=== PATIENT | female | born 1935 | race Caucasian/White ===

== ENCOUNTER 2016-09-16 11:51 | Emergency (ER) | payer MEDICARE, BC ==
[2016-09-16 12:23] VITALS: BP 121/72
[2016-09-16 12:41] LABS: Hematocrit 39.5 % (37.0-47.0); Mean Corpuscular Hgb Conc 32.9 g/dl (32-36); Mean Platelet Volume 9.2 fl (6.0-9.5); Neutrophil # 10.7 K/mm3 (1.3-6.0); Neutrophil % 74.7 % (42-75.0); Platelet Count 226 K/mm3 (150-450); Red Cell Distribution Width 13.3 % (11.5-14.0); White Blood Count 14.3 K/mm3 (4.0-10.5)
[2016-09-16 12:51] LABS: Prothrombin Time (Patient) 10.3 Seconds (9.4-11.4)
[2016-09-16 12:57] LABS: INR 0.99 INR (0.90-1.10); Partial Thrombolplastin Time 28.2 Seconds (24-32)
[2016-09-16 12:58] LABS: ALT 14 U/L (19-67); AST 12 U/L (0-48); Alkaline Phosphatase * 86 U/L (50-170); BUN/Creatinine Ratio 19.4 (9.0-21.6); Bilirubin, Total 1.6 mg/dL (0.0-1.1); Blood Urea Nitrogen 19 mg/dL (3-23); Ca. Corrected For Albumin 9.9 mg/dL (8.4-10.2); Calcium * 9.4 mg/dL (7.9-10.9); Carbon Dioxide 28.6 mmol/L (24-32.6); Chloride 101 mmol/L (97-106); Glucose * 154 mg/dL (70-110); Potassium 4.6 mmol/L (3.4-4.6); Sodium 138 mmol/L (132-142); Total Protein 7.3 gm/dL (6.2-8.2); Troponin I Less than 0.017 ng/ml (0.00-0.10)
[2016-09-16] MEDS ORDERED: NORMAL SALINE 1,000 ML IV ONE (13:27)
--- NOTE | 2016-09-16 13:40 | ERNOTE ---
Back Pain ER HPI Date of Service: 09/16/16 Time Seen by Provider: 09/16/16 13:31 Source: patient Exam Limitations: no limitations Immunizations: IMMUNIZATION HX Immunizations Up to Date Yes History of Influenza Vaccine No Hx Pneumococcal Vaccination No Allergies/Adverse Reactions: Allergies No Known Allergies Allergy (Verified 09/16/16 12:24) Home Medications: HOME MEDICATIONS Cholecalciferol (Vitamin D3) [Vitamin D3] 1,000 unit PO DAILY 08/12/16 [Last Taken Unknown] Lisinopril [Prinivil] 20 mg PO DAILY 08/12/16 [Last Taken Unknown] Lovastatin [Altoprev] 20 mg PO DAILY 08/12/16 [Last Taken Unknown] Niacin 500 mg PO DAILY 08/12/16 [Last Taken Unknown] [place]-3 Fatty Acids/Fish Oil [Fish Oil 1,200 mg Softgel] 1 each PO DAILY [Last Taken Unknown] Nicotine [Nicotine Patch] 1 each TD DAILY 09/16/16 [Last Taken Unknown] Narrative: Pt. comes in with c/o cough and R post back pain that worsens with deep breathing or coughing. Pt. states that her SOB that she was admitted for last month has improved and she has been doing better since discharge from the hospital but this pain developed yesterday and is not improving. Pt. has a hx of TB, COPD, and recent pneumonia. Pt. denies any calf pain, fevers or alleviating factors. Pt. states that she is still decreasing her smoking but has not quit yet. Review of Systems - Review of Systems Constitutional: Present: no symptoms reported. Absent: recent illness, fever, chills, fatigue, malaise EYE: Present: no symptoms reported ENT: Present: no symptoms reported Respiratory: Present: cough. Absent: shortness of breath, wheezing Cardiology: Present: chest pain - R post. Absent: palpitations, syncope, edema , claudication Gastrointestinal/Abdominal: Present: no symptoms reported Genitourinary: Present: no symptoms reported Musculoskeletal: Present: back pain - R lateral upper point pain. Absent: muscle pain, neck pain, joint pain Skin: Present: no symptoms reported Neurological: Present: no symptoms reported. Absent: headache, dizziness/light- headedness, numbness, tingling Endocrine: Present: no symptoms reported All Other Systems: All systems neg except as marked - Patient's Past Medical History Patient History - Medical: No pertinent hx Patient History - Cardiac/Respiratory: Hypertension, Hyperlipidemia Patient History - Cancer: No Hx of Cancer Patient History - Surgical Procedures: Hysterectomy, T & A, Other LMP (females 10-50): Menopausal - Family History Mother Family History - Medical: , No pertinent hx Father Family History - Medical: , No pertinent hx - Social History Living Situations: home Smoking Status: Former smoker Have you smoked in the past 12 months: Yes Smoking Stop Date: 08/15/16 Alcohol Use: none Drug Use: none Physical Exam - Physical Exam General Appearance: Present: wd/wn, alert, no apparent distress Eye Exam: Normal inspection: bilateral, PERRL: bilateral, EOMI: bilateral Neck: Present: normal inspection, nontender. Absent: lymphadenopathy (R), lymphadenopathy (L) Respiratory: Present: no respiratory distress, no accessory muscle use, chest nontender, decreased breath sounds - R lower lobe Cardiovascular/Chest: Present: regular rate, rhythm, no murmur, normal peripheral pulses Gastrointestinal/Abdominal: Present: normal bowel sounds, nontender, nondistended, soft, no organomegaly Back Exam: Present: normal inspection, normal range of motion, no CVA tenderness , no vertebral tenderness Extremity Exam: Present: normal inspection, non-tender, no edema, normal range of motion Neurological Exam: Present: alert, oriented, normal mood/affect, no motor/ sensory deficits Skin Exam: Present: normal color, warm/dry. Absent: pallor, skin rash ED Progress - Date and Time Seen: Date and Time: 09/16/16 15:[address] Andrew Johansen and as pt. has significant pulmonary history we feel that pt. should be observed overnight for complications and further problems of diagnosis. Discussed with Dr Bruno and as these clots are small she feels pt. does not nbeed to be admitted and will come see pt. to determine if she will admit pt. 09/16/16 16:[address] Bruno and we will discharge pt. home with Eliquis - Vital Signs Patient's Vital Signs:: I have reviewed the patient's vital signs. Vital Signs: Vital Signs 09/16/16 12:17 Temperature 36.9 C Pulse Rate 100 Respiratory 16 Rate Blood Pressure 121/72 O2 Sat by Pulse 92 Oximetry - EKG EKG: LVH EKG read: Interp. by me EKG Comments: Sinus tach - X-Ray X-Ray #1 X-Ray: chest Interpretation: Reviewed by me X-ray Comments: no acute cardiopulmonary process - CT/Ultrasound CT/Ultrasound Narrative: CT chest IMPRESSION: RIGHT MIDDLE LOBE AND RIGHT LOWER LOBE PULMONARY EMBOLUS. FINDINGS TELEPHONED TO THE EMERGENCY ROOM PERSONNEL AT 1524 HOURS. Electronically signed by Ifeanyi Beltre M.D.. - Progress/Reassessment Chief Complaint: Back Pain Departure Clinical Impression: Pulmonary embolism Qualifiers: Pulmonary embolism type: other Chronicity: acute Acute cor pulmonale presence: without acute cor pulmonale Qualified Code(s): I26.99 - Other pulmonary embolism without acute cor pulmonale - Departure Disposition: Home self-care Condition: Good Instructions: Pulmonary Embolism, Fibrinolytic Therapy Additional Instructions: Please follow up with your primary provider in 1-2 days.
[2016-09-16] MEDS ORDERED: ENOXAPARIN SODIUM 30 MG/0.3 ML SYRG SC ONE (15:36)
[2016-09-16] MEDS ORDERED: ENOXAPARIN SODIUM 100 MG/ML SYRG SC ONE (16:18)
--- NOTE | 2016-09-16 17:38 | CONS ---
- Reason for consultation (1) Pulmonary embolism Date of Service: 09/16/16 Reason for Consultation:: Was asked to see patient to see if she required hospitalization. HPI - General Date of Service: 09/16/16 Source: patient, family, old records Exam Limitations: no limitations - History of Present Illness Initial Comments: Patient is a 80-year-old WF with a history of HTN, HLD, LT lung lobectomy, nicotine abuse [1 PPD 60 years] who came into the ER because of the RT sided chest pain which increased on deep breathing located posteriorly for the last 24 hours. She was recently admitted approximately a month ago for pneumonia and is recovering from it. She has decreased her smoking but has not quit. D-dimer was elevated at 3.46 because of which she underwent a chest CT per PE protocol. There was a thrombus within the second and third order branches of the right middle lobe and right lower lobe as well as the fourth order branches of the right lower lobe. Small right pleural effusion present. Patient was not in any respiratory distress and she was oxygenating well. Pain worsened with movement and on deep breathing, relieved by rest Allergies/Adverse Reactions: Allergies No Known Allergies Allergy (Verified 09/16/16 12:24) Home Medications: Home Medications Medication Instructions Recorded Last Taken Cholecalciferol (Vitamin D3) 1,000 unit PO DAILY 08/12/16 Unknown [Vitamin D3] Lisinopril [Prinivil] 20 mg PO DAILY 08/12/16 Unknown Lovastatin [Altoprev] 20 mg PO DAILY 08/12/16 Unknown Niacin 500 mg PO DAILY 08/12/16 Unknown [place]-3 Fatty Acids/Fish Oil [Fish 1 each PO DAILY 08/12/16 Unknown Oil 1,200 mg Softgel] Nicotine [Nicotine Patch] 1 each TD DAILY 09/16/16 Unknown - Patient's Past Medical History Patient History - Cardiac/Respiratory: Hypertension, Hyperlipidemia, Other - admitted from to 08/14/16 for reactive air disease exacerbationand possible pneumonia Patient History - Cancer: No Hx of Cancer Patient History - Surgical Procedures: Hysterectomy, T & A, Other - Left lung [id number] approximately LMP (females 10-50): Menopausal - Family History Mother Family History - Medical: Father Family History - Medical: - Social History Living Situations: home Smoking Status: Current some day smoker - 1PPD x 60 yrs Have you smoked in the past 12 months: Yes Smoking Stop Date: 08/15/16 Alcohol Use: none Drug Use: none Procedures MEASURE OF ARTERIAL SATURATION, PERIPHERAL, PERC APPROACH (08/12/16) Review of Systems - Review of Systems Generalized/Overall Review: Present: Weakness. Absent: Chills, Fever Respiratory: Present: Shortness of Breath Cardiac: Present: Chest Pain Abdominal: Absent: Nausea, Vomiting Neurological: Absent: Anxiety, Depressed Physical Examination - Exam Vital Signs: Vital Signs - Last Taken Temp 36.9 C 09/16/16 12:17 Pulse 100 09/16/16 12:17 Resp 16 09/16/16 12:17 BP 121/72 09/16/16 12:17 Pulse Ox 92 09/16/16 12:17 O2 Oxygen Delivery Method Room Air Constitutional: Present: Alert, Oriented x3, No distress, Elderly ENT Exam: Present: hearing grossly normal, moist mucous membranes Eye Exam: bilateral eye: PERRL, EOMI Neck: Present: supple, lymphadenopathy (L) Respiratory: Present: lungs clear, normal breath sounds, no respiratory distress Cardiovascular/Chest: Present: regular rate, rhythm. Absent: tachycardia Abdomen: Present: Normal bowel sounds, soft, nontender, nondistended Skin Exam: Present: normal color, warm/dry Appearance: Present: appropriate appearance, appropriate insight Eye contact: Present: cooperative, good eye contact, normal speech Thoughts: Present: normal thought pattern, normal mood /affect - Results and Findings: Narrative: Laboratory Tests 09/16/16 12:40 WBC 14.3 H Hgb 13.0 Hct 39.5 Plt Count 226 09/16/16 12:40 Plasma Sodium 139 Potassium 4.6 D Chloride 101 Carbon Dioxide 28.6 BUN 19 Creatinine 0.98 Est GFR (Non-Af Amer) 58 L Random Glucose 154 H Calcium Adj for Albumin 9.9 Total Bilirubin 1.6 H AST 12 ALT 14 L Alkaline Phosphatase 86 Total Protein 7.3 Albumin 3.0 L 09/16/16 12:40 D-Dimer 3.46 H Troponin I < 0.017 09/16/2016: 12:43: CXR PA and lateral: Mild hyperinflation of lungs. Pleural thickening and scarring in the left apex. Volume loss in the left apex. By report patient has had left upper lobe resection. Minimal pleural thickening and scarring in the right apex. No pneumothorax/no new areas of lung consolidation. Heart size and vascularity appear WNL. IMPRESSION: Chronic findings with no acute cardiopulmonary disease. 09/16/2016: 15:09: CT chest per PE protocol: Intraluminal thrombus within second and third order branches of RML and RLL as well as fourth order branches of the RLL. Some of these are nonocclusive and some are occlusive. No thrombus on left. Atherosclerotic calcifications including coronary artery calcifications present. Small right pleural effusion present. Pleural thickening and scarring in the apices. Underlying emphysema. Focus of scarring in the periphery of the RUL. IMPRESSION: Right middle lobe and right lower lobe pulmonary embolus. - Assessments/Findings (1) Pulmonary embolism Diagnosis(s): Discussed with the patient regarding the CT findings - thrombus in the second and third order branches of the RT.M.L. and RT.L.L. as well as fourth order branches of R.L.L. Patient in no respiratory distress, saturating well and not in severe pain. She did not want to get hospitalized and discussed various methods of treatment including enoxaparin, warfarin and DOAC. Pros and cons of all medications were discussed in detail. Patient preferred to go on oral anticoagulants and prescription was given for Apixaban [Eliquis] 10 mg PO BID for one week followed by 5 mg PO BID for 3 months. She does not require other bridging. Patient is to obtain a BMP with her PCP in a month. Problem: Acute Qualifiers: Pulmonary embolism type: other Chronicity: acute Acute cor pulmonale presence: without acute cor pulmonale Qualified Code(s): I26.99 - Other pulmonary embolism without acute cor pulmonale (2) Nicotine dependence Diagnosis(s): Smokes 1 PPD 60 years. Currently decreasing. Patient encouraged to quit smoking completely. Encouraged to use patches etc. and discuss with her PCP. Problem: Chronic Qualifiers: Nicotine product type: cigarettes (3) Hyperlipidemia Diagnosis(s): Chronic and stable; continue lovastatin 20 mg PO daily. Problem: Chronic Qualifiers: Hyperlipidemia type: unspecified Qualified Code(s): E78.5 - Hyperlipidemia , unspecified (4) HTN (hypertension) Diagnosis(s): Chronic and stable; continue lisinopril 20 mg PO HS. Problem: Chronic Qualifiers: Hypertension type: essential hypertension Qualified Code(s): I10 - Essential (primary) hypertension
== END 2016-09-16 17:00 | disposition home or self-care (01) ==
LOC: ER 11:51
DX: I26.99 Other pulmonary embolism without acute cor pulmonale (principal); R07.9 Chest pain, unspecified; I10 Essential (primary) hypertension; E78.5 Hyperlipidemia, unspecified; Z87.891 Personal history of nicotine dependence